=== PATIENT | female | born 1930 | race Caucasian/White ===

== ENCOUNTER 2016-06-17 12:04 | Observation (INO) | payer OTHER ==
[2016-06-15 15:30] LABS: HEMATOCRIT 38.8 % (36.0-48.0); HEMOGLOBIN 12.3 g/dL (12.0-16.0)
[2016-06-15 15:45] LABS: BUN (BLOOD UREA NITROGEN) 16 MG/DL (6-23); CALCIUM, SERUM 8.8 MG/DL (8.5-10.4); CHLORIDE, SERUM 111 MMOL/L (96-112); CO2 (CARBON DIOXIDE) 26 MMOL/L (24-34); CREATININE 0.79 MG/DL (0.55-1.02); GFR AFRICAN AMERICAN 80 ML/MIN (>=60); GFR NON AFRICAN AMERICAN 69 ML/MIN (>=60); GLUCOSE, SERUM 102 MG/DL (60-99); POTASSIUM, SERUM 4.4 MMOL/L (3.5-5.3); SODIUM, SERUM 146 MMOL/L (135-148)
--- NOTE | ~2016-06-17 | HP ---
History And Physical [id number] [place]. [address] NAME: FANMARIA ALEJANDRA : 34 STATUS : ADM IN [facility]#: [id number] AGE: 86 ADM/REG DATE : 06/17/16 MR#: [id number] REPORT SERV DATE: 06/17/16 DICTATED BY: JENNA JONES DATE: 06/17/16 REPORT STATUS : Draft TRANSCRIBED BY: LETITIA DATE: 06/17/16 DATE OF ADMISSION: 06/17/2016 REASON FOR ADMISSION: Transvaginal rectocele repair. PAST MEDICAL HISTORY: Anemia, obstructive defecation, rectocele, high cholesterol, osteoporosis, history of kidney stones and fatigue. PAST SURGICAL HISTORY: Breast surgery, bladder tack, lithotripsy and cholecystectomy. SOCIAL HISTORY: Quit smoking in 1956. She is . Does not drink. FAMILY HISTORY: Significant for myocardial infarction, stroke, and type 2 diabetes. ALLERGIES: SULFA, CODEINE, AND TRIMETHOPRIM. MEDICATIONS: She is on none at this time. REVIEW OF SYSTEMS: As stated in the HPI, otherwise, negative. PHYSICAL EXAMINATION: VITAL SIGNS: 92, 163/96, BMI is 23. GENERAL: Alert, thin, elderly white female, in no acute distress. HEENT: Normocephalic and atraumatic. EOMI. PERRLA. Oropharynx is clear. NECK: Supple. No lymphadenopathy. LUNGS: Clear to auscultation bilaterally. HEART: Regular rate and rhythm. ABDOMEN: Soft and flat. She has prior scars consistent with the aforementioned surgeries. Her rectocele is present at the introitus, this is a grade 2 rectocele. EXTREMITIES: Moves all extremities well. NEUROLOGIC: Cranial nerves II through XII intact. SKIN: No rashes. JENNIFER/LETITIA Jenna Jones M.D. / [id number] CC: Jenna Jones M.D.
--- NOTE | ~2016-06-17 | OP ---
Record Of Operation [facility] [address] [place]. [address] NAME: FANMARIA ALEJANDRA : 34 STATUS : ADM IN PAT#: [id number] AGE: 86 ADM/REG DATE : 06/17/16 MR#: [id number] REPORT SERV DATE: 06/18/16 DICTATED BY: JENNA PEÑALOZA DATE: 06/17/16 REPORT STATUS : Draft TRANSCRIBED BY: LETITIA DATE: 06/17/16 DATE OF PROCEDURE: 06/17/2016 PREPROCEDURE DIAGNOSIS: 5 cm rectocele with enterocele. POSTPROCEDURE DIAGNOSIS: 5 cm rectocele with enterocele. PROCEDURE: Transvaginal rectocele repair, NO MESH. LABOR RELATIONS WORKER: Lulu. DESCRIPTION OF PROCEDURE: The patient was taken to the operating room, induced under general anesthesia, placed into lithotomy. Cooley catheter was placed. The patient was prepped and draped in the usual sterile fashion. Local anesthetic which is a 1:1 mixture of 1% lidocaine and 0.25% Sensorcaine with epinephrine was injected in the submucosal space of the posterior vaginal wall. Then an incision was made from the apex of the vagina to the posterior introitus through the mucosa only. Vaginal flaps were created using cautery and blunt dissection with Kittner using Allis-Tehama's on the vaginal flaps. Once this was accomplished to the area of the apex of the vagina, this is where the enterocele was located. Then, the repair began by or invagination of the rectovaginal septum. This was accomplished in 2 layers, first midline and then lateral, imbricating the stitches in using 2-0 Vicryl UR6 in between each layer. Dr. Younger placed an 8-glove over her right hand, dipped in Betadine paint and KY jelly. This was placed in through the rectum, palpating the vaginal wall. There were no palpable stitches in the rectum and as the wall was imbricated, the rectovaginal septum was becoming thicker and stronger. Once 2 layers were performed and of course, the glove was always discarded before continuing on, the excess vaginal mucosa was trimmed using cautery, it was passed off the table and sent to pathology. Then, the incision was closed in a running locking fashion from apex to introitus. The vagina was irrigated and then a Premarin-soaked vaginal pack was placed, apex to introitus, trimmed. She was cleaned and dried, followed by two 4x4s, peripad, and mesh panties. She tolerated the procedure well. JENNIFER/LETITIA Jenna Peñaloza M.D. / [id number] CC: Brittney Luke IV, M.D. Christopher Keel, MD Teresa Regan, DO
[~2016-06-17 12:04] MED LIST: B121000P SC; MULTIPLE VIT PO
[2016-06-17 16:12] LABS: HEMATOCRIT 37.7 % (36.0-48.0); HEMOGLOBIN 12.2 g/dL (12.0-16.0)
[2016-06-18 07:09] LABS: BASOPHILS 0 %; EOSINOPHILS 0 %; HEMATOCRIT 35.8 % (36.0-48.0); HEMOGLOBIN 11.7 g/dL (12.0-16.0); IMMATURE GRANULOCYTES 0.1 %; IMMATURE GRANULOCYTES ABSOLUTE 0.01 10/3/uL (0.0-0.11); LYMPHOCYTES 7.2 %; LYMPHOCYTES ABSOLUTE 0.61 10/3/uL (0.67-4.30); MEAN CORPUS HGB CONC 32.7 g/dL (32.0-36.0); MEAN CORPUSCULAR HEMOGLOB 27.8 pg (26.0-34.0); MEAN PLATELET VOLUME 9.7 fL (9.2-13.0); MONOCYTES ABSOLUTE 0.42 10/3/uL (0.21-1.20); NEUTROPHILS 87.7 %; NEUTROPHILS ABSOLUTE 7.39 10/3/uL (2.02-8.40); PLATELET COUNT 187 10/3/uL (150-400); RBC DISTRIBUTION WIDTH 14.9 % (12.0-16.0); RED CELL COUNT 4.21 10/6/uL (4.0-5.6); WHITE BLOOD CELLS 8.4 10/3/uL (4.5-10.5)
[2016-06-18 07:11] LABS: MANUAL DIFF NO %
[2016-06-18 07:21] LABS: BUN (BLOOD UREA NITROGEN) 13 MG/DL (6-23); CALCIUM, SERUM 8.3 MG/DL (8.5-10.4); CHLORIDE, SERUM 109 MMOL/L (96-112); CO2 (CARBON DIOXIDE) 23 MMOL/L (24-34); CREATININE 0.67 MG/DL (0.55-1.02); GFR AFRICAN AMERICAN 94 ML/MIN (>=60); GFR NON AFRICAN AMERICAN 81 ML/MIN (>=60); POTASSIUM, SERUM 4.3 MMOL/L (3.5-5.3); SODIUM, SERUM 142 MMOL/L (135-148)
[2016-06-18 07:22] LABS: GLUCOSE, SERUM 155 MG/DL (60-99)
[2016-06-18] MEDS ORDERED: DIL2TAB PO (09:53)
[2016-06-18] MEDS ORDERED: METPAKSF PO (09:58)
== END 2016-06-18 14:32 | disposition home or self-care (01) ==
LOC: SDC 12:04 → SDC/OF 15:52 → 5SO 16:48
PROVIDERS: Surgery
PROC: 0JQC0ZZ Repair Pelvic Region Subcutaneous Tissue and Fascia, Open Approach (ICD-10-PCS; principal; 2016-06-17 13:00)
DX: N81.6 Rectocele (principal); N81.5 Vaginal enterocele; D64.9 Anemia, unspecified; E78.00 Pure hypercholesterolemia, unspecified; M81.0 Age-related osteoporosis without current pathological fracture; Z87.442 Personal history of urinary calculi; Z98.890 Other specified postprocedural states; Z90.49 Acquired absence of other specified parts of digestive tract; Z87.891 Personal history of nicotine dependence; Z82.49 Family history of ischemic heart disease and other diseases of the circulatory system; Z83.3 Family history of diabetes mellitus; Z82.3 Family history of stroke; Z88.2 Allergy status to sulfonamides; Z88.5 Allergy status to narcotic agent; Z88.8 Allergy status to other drugs, medicaments and biological substances; Z79.899 Other long term (current) drug therapy
CPT/HCPCS: 80048; 85014; 85018; 85025; 88302; 93005; 96372; 96374; 96375; 96376; A9270-GY; C9113; G0378; J0690; J1885; J2250; J2270; J2370; J2405; J2550; J2710; J3010